=== PATIENT | female | born 1995 | race Caucasian/White ===

== ENCOUNTER 2022-06-09 18:24 | Emergency (ER) | payer OTHER ==
[~2022-06-09] VITALS: Ht 180.3 cm; Wt 81.6 kg
--- NOTE | 2022-06-09 20:18 | NUR ---
BIBS. RUQ ABD PAIN X TODAY, BEEN ON AND OFF X 2 MONTH. +N/-V/-D. PT AWAKE AND ALERT X4 AMBULATES WITH STEADY GAIT. CHANGED INTO GOWN AND V/S WNL.
--- NOTE | 2022-06-09 20:19 | NUR ---
URINE SENT TO LAB
[2022-06-09] MEDS ORDERED: KETOROLAC TROMETHAMINE 15 MG/ML VIAL ONE (20:38)
[2022-06-09] MEDS ORDERED: ONDANSETRON HCL/PF 4 MG/2 ML VIAL ONE (20:38)
--- NOTE | 2022-06-09 20:48 | NUR ---
22G IV ESTABLISHEDT AT [facility]. BLOOD DRAWN AND SENT TO LAB
--- NOTE | 2022-06-09 20:52 | NUR ---
us tech at bedside
[2022-06-09] MEDS ORDERED: ONDANSETRON HCL/PF 4 MG/2 ML VIAL IVP ONE (21:00)
[2022-06-09] MEDS ORDERED: IV NS 0.9% 1,000 ML BAG IV ONE (21:00)
[2022-06-09] MEDS ORDERED: KETOROLAC TROMETHAMINE INJ 30 MG/ML VIAL IV ONE (21:00)
[2022-06-09 21:09] LABS: BASOPHILS % (AUTO) 0.4 % (0.0-2.0); EOSINOPHILS % (AUTO) 0.6 % (0.0-6.0); HEMATOCRIT 47 % (33-45); LYMPHOCYTES # (AUTO) 1.8 K/uL (0.8-4.8); LYMPHOCYTES % (AUTO) 18.8 % (20.0-44.0); MEAN CORPUSCULAR HGB CONC 34 g/dl (31.0-36.0); MEAN CORPUSCULAR VOLUME 89 fL (82-100); MONOCYTES # (AUTO) 0.5 K/uL (0.1-1.30); MONOCYTES % (AUTO) 4.9 % (2.0-12.0); NEUTROPHILS # (AUTO) 7.1 K/uL (1.8-8.9); NEUTROPHILS % (AUTO) 75.3 % (43.0-81.0); PLATELET COUNT (AUTO) 354 K/uL (150-450); RED BLOOD CELL COUNT(AUTO) 5.32 MIL/uL (4.0-5.2); WHITE BLOOD COUNT (AUTO) 9.4 K/uL (4.3-11.0)
[2022-06-09 21:22] LABS: CALCIUM, SERUM 9.7 mg/dL (8.5-10.1); CREATININE 0.8 mg/dL (0.6-1.3); POTASSIUM 3.4 mmol/L (3.5-5.1)
[2022-06-09 21:28] LABS: ALBUMIN 4.6 g/dL (3.4-5.0); BILIRUBIN,DIRECT 1.5 mg/dL (0.0-0.2); BILIRUBIN,TOTAL 2.7 mg/dL (0.2-1.0); TOTAL PROTEIN, SERUM 9.4 g/dL (6.4-8.2)
--- NOTE | 2022-06-09 22:45 | NUR ---
Patient discharged to home in stable condition. Written and verbal after care instructions given. Patient verbalizes understanding of instruction.IV removed. Catheter intact and site benign. Pressure and 4x4 applied to site. No bleeding noted.
[2022-06-09 23:14] VITALS: BP 143/87
== END 2022-06-09 22:45 | disposition home or self-care (01) ==
LOC: ER 18:39
DX: K80.20 Calculus of gallbladder without cholecystitis without obstruction (principal); R10.11 Right upper quadrant pain
CPT/HCPCS: 99284; 96374; 76705; 96361; 96375; 85025; 80048; 83690; 80076; 84703; 36415; 84702; J2405; J7030; J1885